=== PATIENT | female | born 1950 | race Two or more races ===

== ENCOUNTER 2018-01-16 12:01 | Emergency (ER) | payer OTHER ==
[~2018-01-16] VITALS: Ht 154.9 cm; Wt 62.1 kg
[~2018-01-16 12:01] MED LIST: ADVAIR 2501 DISK W/1; ALBUTEROL17 GM; SINGULAIR 10MG10 MG; SYNTHROID100 MCG
[2018-01-16] MEDS ORDERED: PULMICORT1 MG/2 ML (12:22)
[2018-01-16] MEDS ORDERED: LOSARTAN POTAS100 MG (12:23)
== END 2018-01-16 18:03 | disposition home or self-care (01) ==
LOC: ER 12:01 → CPU-OBS 12:20 → ER 18:03
DX: R07.89 Other chest pain (principal)

== ENCOUNTER → 2019-08-03 | Outpatient (CLI) | payer OTHER ==
[~2019-08-03] MED LIST changes: +LOSARTAN POTAS100 MG; +PULMICORT1 MG/2 ML
== END | disposition home or self-care (01) ==
LOC: RX STUDY 09:15
DX: R13.19 Other dysphagia (principal)

== ENCOUNTER 2024-03-30 15:14 | Outpatient (CLI) | payer OTHER | END 2024-03-30 15:23 | disposition home or self-care (01) | LOC: RAD 15:14 | DX: M54.50 Low back pain, unspecified (principal); R07.81 Pleurodynia ==